=== PATIENT | male | born 1955 | race Two or more races ===

== ENCOUNTER 2016-05-20 23:46 | Emergency (ER) | payer SELFPAY ==
[~2016-05-20] VITALS: Ht 182.9 cm; Wt 72.6 kg
[2016-05-21] MEDS ORDERED: TDAP [DIPH/PERTUSSIS/TET] 0.5 ML VIAL IM ONE ×2 (00:30→00:45)
[2016-05-21 03:02] VITALS: BP 143/73
== END 2016-05-21 03:02 | disposition home or self-care (01) ==
LOC: ER 23:49
DX: S01.412A Laceration without foreign body of left cheek and temporomandibular area, initial encounter (principal); S09.90XA Unspecified injury of head, initial encounter; W01.0XXA Fall on same level from slipping, tripping and stumbling without subsequent striking against object, initial encounter; Y93.89 Activity, other specified; Y92.89 Other specified places as the place of occurrence of the external cause; Y99.8 Other external cause status
CPT/HCPCS: 12011; 70450; 72125; 90471; 90715; 99284; A4606; A6402 ×2; L0172; Z7610

== ENCOUNTER 2016-10-16 17:06 | Emergency (ER) | payer OTHER ==
[~2016-10-16] VITALS: Ht 175.3 cm; Wt 62.1 kg
[2016-10-16] MEDS ORDERED: CITA40TA11 PO (17:16)
[2016-10-16] MEDS ORDERED: BENZ2TAB7 PO (17:16)
[2016-10-16] MEDS ORDERED: DIVA500T54 PO (17:16)
[2016-10-16] MEDS ORDERED: OLAN10TA3 PO (17:16)
[2016-10-16 17:25] LABS: BASOPHILS # (AUTO) 0.1 /CMM (0.0-0.2); BASOPHILS % (AUTO) 1.2 % (0.0-2.0); EOSINOPHILS % (AUTO) 0.7 % (0.0-6.0); HEMATOCRIT 45 % (39-51); HEMOGLOBIN 14.6 g/dL (13.5-17.5); LYMPHOCYTES # (AUTO) 1.5 /CMM (0.8-4.8); MEAN CORPUSCULAR HEMOGLOBIN 28 PG (26.0-33.0); MEAN CORPUSCULAR HGB CONC 33 g/dl (31.0-36.0); MEAN CORPUSCULAR VOLUME 85 fL (80-96); MONOCYTES # (AUTO) 0.4 /CMM (0.1-1.30); MONOCYTES % (AUTO) 5.7 % (2.0-12.0); NEUTROPHILS # (AUTO) 4.8 /CMM (1.8-8.9); NEUTROPHILS % (AUTO) 70.4 % (43.0-81.0); PLATELET COUNT (AUTO) 202 /CMM (150-450); RDW COEFFICIENT OF VARIATION 13.5 (11.5-15.0); RED BLOOD CELL COUNT(AUTO) 5.21 MIL/uL (4.5-6.0); WHITE BLOOD COUNT (AUTO) 6.8 K/uL (4.3-11.0)
[2016-10-16 17:33] LABS: CALCIUM, SERUM 9.2 mg/dL (8.5-10.1); CARBON DIOXIDE 20 mmol/L (21-32); CHLORIDE 100 mmol/L (98-107); CREATININE 1.2 mg/dL (0.6-1.3); GLUCOSE 72 mg/dL (74-106); POTASSIUM 3.9 mmol/L (3.5-5.1); SODIUM SERUM 140 mmol/L (136-145); UREA NITROGEN, BLOOD 19 mg/dL (7-18)
[2016-10-16 17:34] LABS: ALCOHOL, BLOOD < 3 mg/dL (0-0)
[2016-10-16 17:41] LABS: TROPONIN I < 0.017 ng/mL (0.00-0.056)
--- NOTE | 2016-10-16 18:27 | NUR ---
CALLED [facility] FOR PSYCH EVAL, LEFT MESSAGE ON VOICEMAIL
--- NOTE | 2016-10-16 18:31 | NUR ---
RECEIVED CALL BACK FROM NATHANIEL HENNESSY 1 HOUR
--- NOTE | 2016-10-16 18:59 | NUR ---
RECEIVED REPORT FROM ELTON MAIN FOR CONTINUE OF CARE. PT APPERS COMFORTABLE
--- NOTE | 2016-10-16 19:49 | NUR ---
URINE COLLECTED. SENT TO LAB.
[2016-10-16 19:54] LABS: APPEARANCE,URINE Clear (CLEAR); BILIRUBIN,URINE SMALL (NEGATIVE); BLOOD, URINE Trace-lysed Ery/uL (NEGATIVE); COLOR,URINE Yellow (YELLOW); KETONES,URINE >=160 (NEGATIVE); LEUKOCYTE ESTERASE ,URINE Negative (NEGATIVE); NITRITE, URINE Negative (NEGATIVE); PH,URINE 5.5 (5.0-8.0); PROTEIN,URINE 30 mg/dl (NEGATIVE); UGLUCOSE Negative (NEGATIVE)
--- NOTE | 2016-10-16 19:56 | NUR ---
[facility] AT BEDSIDE FOR EVAL.
[2016-10-16 20:17] LABS: BACTERIA,URINE Few /HPF (None Seen); RBC,URINE 0-2 /HPF (0-2); SQUAMOUS EPITHELIAL CELL,UR Rare /HPF (None Seen); WBC,URINE 0-2 /HPF (0-3)
[2016-10-16] MEDS ORDERED: IV D5/0.45 NACL 500 ML IV ONE ×2 (20:28→20:30)
[2016-10-16] MEDS ORDERED: IV SET PRIMARY 1 EA INFUS.SET MC ONE (20:28)
[2016-10-16] MEDS ORDERED: IV NS 0.9% 500 ML IV ONE (20:28)
[2016-10-16] MEDS ORDERED: IV NS 0.9% 500 ML BAG IV ONE (20:30)
--- NOTE | 2016-10-16 21:30 | NUR ---
PT PLACED ON 5150 HOLD PER GERHARD.
--- NOTE | 2016-10-16 21:44 | NUR ---
CALLED [facility] FOR TRANSPORT TO [facility], ETA 1 HOUR
[2016-10-16 22:44] VITALS: BP 126/80
--- NOTE | 2016-10-16 22:56 | NUR ---
REPORT GIVEN TO ELTON MORATAYA FROM [facility].
--- NOTE | 2016-10-16 23:38 | NUR ---
IV removed. Catheter intact and site benign. Pressure and 4x4 applied to site. No bleeding noted.
== END 2016-10-16 23:39 ==
LOC: ER 17:07
DX: F23 Brief psychotic disorder (principal); F20.2 Catatonic schizophrenia; F21 Schizotypal disorder
CPT/HCPCS: 36415; 80048; 80305; 81001; 84484; 85025; 87081; 93005; 99285; A4606; G0480; J3490; J7040; Z7610; 81000-TC

== ENCOUNTER 2016-11-08 17:59 | Emergency (ER) | payer OTHER ==
[~2016-11-08] VITALS: Ht 182.9 cm; Wt 77.1 kg
[~2016-11-08 17:59] MED LIST: BENZ2TAB7 PO; CITA40TA11 PO; DIVA500T54 PO; OLAN10TA3 PO
[2016-11-08] MEDS ORDERED: IV NS 0.9% 1,000 ML ONE (18:08)
--- NOTE | 2016-11-08 18:15 | NUR ---
Pt bbra 79 found on lawn sleeping. PT AAOX2. NOTED LETHARGIC. PER PT HE WAS WALKING THEN FELT TIRED AND LAID ON THE GRASS. VSS. SEEN BY FOR EVAL. SAFETY AND COMFORT MEASURES PROVIDED. WILL MONITOR.
[2016-11-08 18:16] LABS: BASOPHILS # (AUTO) 0.1 /CMM (0.0-0.2); BASOPHILS % (AUTO) 0.5 % (0.0-2.0); EOSINOPHILS # (AUTO) 0.1 /CMM (0.0-0.7); EOSINOPHILS % (AUTO) 0.5 % (0.0-6.0); HEMATOCRIT 38 % (39-51); HEMOGLOBIN 12.6 g/dL (13.5-17.5); LYMPHOCYTES % (AUTO) 9.7 % (20.0-44.0); MEAN CORPUSCULAR HEMOGLOBIN 29 PG (26.0-33.0); MEAN CORPUSCULAR HGB CONC 33 g/dl (31.0-36.0); MEAN CORPUSCULAR VOLUME 86 fL (80-96); MONOCYTES # (AUTO) 0.8 /CMM (0.1-1.30); MONOCYTES % (AUTO) 7.8 % (2.0-12.0); NEUTROPHILS # (AUTO) 8.4 /CMM (1.8-8.9); NEUTROPHILS % (AUTO) 81.5 % (43.0-81.0); PLATELET COUNT (AUTO) 179 /CMM (150-450); RDW COEFFICIENT OF VARIATION 13.1 (11.5-15.0); RED BLOOD CELL COUNT(AUTO) 4.41 MIL/uL (4.5-6.0); WHITE BLOOD COUNT (AUTO) 10.4 K/uL (4.3-11.0)
[2016-11-08 18:24] LABS: CALCIUM, SERUM 9.4 mg/dL (8.5-10.1); CARBON DIOXIDE 28 mmol/L (21-32); CHLORIDE 108 mmol/L (98-107); CREATININE 1.3 mg/dL (0.6-1.3); GLUCOSE 112 mg/dL (74-106); POTASSIUM 3.8 mmol/L (3.5-5.1); SODIUM SERUM 145 mmol/L (136-145); UREA NITROGEN, BLOOD 31 mg/dL (7-18)
[2016-11-08 18:25] LABS: ALCOHOL, BLOOD < 3 mg/dL (0-0)
[2016-11-08] MEDS ORDERED: IV NS 0.9% 1,000 ML BAG IV ONE (18:30)
--- NOTE | 2016-11-08 18:39 | NUR ---
PAGED GABRIELA RN FOR EVAL, ETA 45 MIN
--- NOTE | 2016-11-08 18:40 | NUR ---
UNABLE TO GIVE URINE SAMPLE AT THIS TIME.
[2016-11-08] MEDS ORDERED: ONDANSETRON HCL/PF 4 MG/2 ML VIAL IV ONE (20:30)
[2016-11-08] MEDS ORDERED: ONDANSETRON HCL/PF 4 MG/2 ML VIAL ONE (20:37)
[2016-11-08] MEDS ORDERED: LIDOCAINE 2% JEL UROJET 10 ML MM ONE ×2 (20:40→21:00)
--- NOTE | 2016-11-08 20:45 | NUR ---
IN AND OUT CATH DONE. APPROX 100 ML MARIAELENA URINE OUTPUT NOTED. SAMPLE SENT TO LAB.
--- NOTE | 2016-11-08 21:22 | NUR ---
FIO2 DECREASED TO 50% BY RT.
--- NOTE | 2016-11-08 21:22 | NUR ---
Abram iniguez in [facility] - 11/08/16 at 2123 by TEDDYCCJOELLENACK FIO2 DECREASED TO 50% BY RT.
--- NOTE | 2016-11-08 22:40 | NUR ---
PT APPEARS TO BE RESTING COMFORTABLY WITH NO S/S OF PAIN OR DISTRESS.
--- NOTE | 2016-11-08 23:58 | NUR ---
PT APPEARS TO BE RESTING COMFORTABLY WITH NO S/S OF PAIN OR DISTRESS.
--- NOTE | 2016-11-09 00:31 | NUR ---
PT APPEARS TO BE SLEEPING SOUNDLY WITH NO S/S OF PAIN OR DISTRESS. PT REC'D WARM BLANKETS. PT IS ON THE MONITOR AND CONTINUOUS PULSE OX.
--- NOTE | 2016-11-09 05:59 | NUR ---
PT TO GO BY TAXI ONCE SOMEONE AT THE FACILITY CAN BE REACHED AND RECEIVE THE PT.
--- NOTE | 2016-11-09 05:59 | NUR ---
CALLED [facility] TO SEE IF THEY CAN LET THE PT IN/ RECEIVE THE PT. THE FACILITY IS NOT OPEN UNTIL 0900.
--- NOTE | 2016-11-09 06:00 | NUR ---
CALLED [facility] FOR REGULAR FOOD TRAY; DENIES FOOD ALLERGIES.
--- NOTE | 2016-11-09 06:56 | NUR ---
PT APPEARS TO BE RESTING COMFORTABLY WITH NO S/S OF PAIN OR DISTRESS.
--- NOTE | 2016-11-09 07:03 | NUR ---
REPORT GIVEN TO ELTON CALLE FOR [facility].
--- NOTE | 2016-11-09 07:04 | NUR ---
RECEIVED PATIENT, REMAINS STABLE. WILL CONTINUE TO MONITOR.
--- NOTE | 2016-11-09 07:51 | NUR ---
[facility] in [place], address is [address] [place] [address] [address], , ANASTASIYA
--- NOTE | 2016-11-09 09:24 | NUR ---
CALLED [phone] NOBODY ANSWERS PHONE, UNABLE TO EAVE MESSAGE CALLED [phone] ANASTASIYA, LEFT MESSAGE, AWAITING FOR CALL BACK
--- NOTE | 2016-11-09 09:31 | NUR ---
SPOKE WITH ANASTASIYA FROM [facility], I NOTIFIED HER THAT PATIENT WILL BE DISCHARGED BACK TO HIS FACILITY
--- NOTE | 2016-11-09 10:15 | NUR ---
Patient discharged to in stable condition. Written and verbal after care instructions given. Patient verbalizes understanding of instruction. HECTOR BOWEN PROVIDER. CAB CALLED.
--- NOTE | 2016-11-09 10:16 | NUR ---
IV removed. Catheter intact and site benign. Pressure and 4x4 applied to site. No bleeding noted.
[2016-11-09 10:20] VITALS: BP 105/63
== END 2016-11-09 10:21 | disposition home or self-care (01) ==
LOC: ER 18:00
DX: F20.9 Schizophrenia, unspecified (principal); R41.82 Altered mental status, unspecified
CPT/HCPCS: 36415; 51701; 70450; 80048; 80305; 85025; 96361; 96374; 99285; A4606; G0480; J2405; J3490; J7030; Z7610

== ENCOUNTER 2017-03-30 13:39 | Emergency (ER) | payer OTHER ==
[~2017-03-30] VITALS: Ht 182.9 cm; Wt 61.2 kg
--- NOTE | 2017-03-30 14:00 | NUR ---
MICH RA FOR MED REFILL OF HIS PSYCH MEDS(DOESN'T KNOW WHAT HIS HOME MEDS). NAD NOTED. PT AAOX3. VSS. SAFETY AND COMFORT MEASURES PROVIDED. WILL MONITOR.
--- NOTE | 2017-03-30 18:00 | NUR ---
COMPUTER SYSTEMS SECURITY ANALYST AT FOR EVAL.
[2017-03-30] MEDS ORDERED: OLANZAPINE 5 MG TABLET PO ONE (18:30)
--- NOTE | 2017-03-30 18:30 | NUR ---
PT MEDICATED ORDERED.
[2017-03-30 18:32] LABS: BASOPHILS # (AUTO) 0.1 /CMM (0.0-0.2); BASOPHILS % (AUTO) 0.9 % (0.0-2.0); EOSINOPHILS % (AUTO) 0.1 % (0.0-6.0); HEMATOCRIT 43 % (39-51); HEMOGLOBIN 13.9 g/dL (13.5-17.5); LYMPHOCYTES # (AUTO) 2.3 /CMM (0.8-4.8); LYMPHOCYTES % (AUTO) 23.3 % (20.0-44.0); MEAN CORPUSCULAR HEMOGLOBIN 29 PG (26.0-33.0); MEAN CORPUSCULAR HGB CONC 33 g/dl (31.0-36.0); MEAN CORPUSCULAR VOLUME 89 fL (80-96); MONOCYTES # (AUTO) 0.8 /CMM (0.1-1.30); MONOCYTES % (AUTO) 8.1 % (2.0-12.0); NEUTROPHILS # (AUTO) 6.6 /CMM (1.8-8.9); NEUTROPHILS % (AUTO) 67.6 % (43.0-81.0); PLATELET COUNT (AUTO) 264 /CMM (150-450); RDW COEFFICIENT OF VARIATION 14.6 (11.5-15.0); RED BLOOD CELL COUNT(AUTO) 4.83 MIL/uL (4.5-6.0); WHITE BLOOD COUNT (AUTO) 9.7 K/uL (4.3-11.0)
[2017-03-30] MEDS ORDERED: OLANZAPINE 5 MG TABLET ONE (18:33)
[2017-03-30 19:32] LABS: ALANINE AMINOTRANSFERASE 26 U/L (12-78); ALBUMIN 4.1 g/dL (3.4-5.0); ALKALINE PHOSPHATASE 82 U/L (46-116); ASPARTATE AMINOTRANSFERASE 41 U/L (15-37); BILIRUBIN,DIRECT 0.1 mg/dL (0.0-0.2); BILIRUBIN,TOTAL 0.7 mg/dL (0.2-1.0); CALCIUM, SERUM 9.5 mg/dL (8.5-10.1); CARBON DIOXIDE 17 mmol/L (21-32); CHLORIDE 97 mmol/L (98-107); GLUCOSE 74 mg/dL (74-106); POTASSIUM 3.7 mmol/L (3.5-5.1); SODIUM SERUM 136 mmol/L (136-145); TOTAL PROTEIN, SERUM 7.4 g/dL (6.4-8.2); UREA NITROGEN, BLOOD 26 mg/dL (7-18)
[2017-03-30 19:34] LABS: ACETAMINOPHEN < 2 ug/ml (10-30); SALICYLATE 2.2 mg/dL (2.8-20.0)
[2017-03-30 19:44] LABS: ALCOHOL, BLOOD < 3 mg/dL (0-0)
[2017-03-30 20:09] LABS: APPEARANCE,URINE SL CLOUDY (CLEAR); BILIRUBIN,URINE 2+ (NEGATIVE); BLOOD, URINE NEGATIVE Ery/uL (NEGATIVE); COLOR,URINE YELLOW (YELLOW); KETONES,URINE 3+ (NEGATIVE); LEUKOCYTE ESTERASE ,URINE NEGATIVE (NEGATIVE); NITRITE, URINE NEGATIVE (NEGATIVE); PH,URINE 5.5 (5.0-8.0); PROTEIN,URINE TRACE mg/dl (NEGATIVE); UGLUCOSE NEGATIVE (NEGATIVE); UROBILINOGEN,URINE 0.2 EU/dL (0.2)
--- NOTE | 2017-03-30 20:10 | NUR ---
Patient is resting comfortably in bed with eyes closed. Easily aroused. VSS
[2017-03-30 20:22] LABS: BACTERIA,URINE Few /HPF (None Seen); COARSE GRANULAR CASTS,URINE Rare /LPF (None Seen); HYALINE CASTS, URINE Rare /LPF (None Seen); SQUAMOUS EPITHELIAL CELL,UR Moderate /HPF (None Seen)
--- NOTE | 2017-03-30 22:57 | NUR ---
Patient is resting comfortably in bed with eyes closed. Easily aroused. VSS
--- NOTE | 2017-03-30 23:51 | NUR ---
RECEIVED REPORT FROM JOSEFINA AMIN RN FOR COTINUITY OF CARE.
--- NOTE | 2017-03-31 08:26 | NUR ---
PATIENT ON BED. ASLEEP. VSS
--- NOTE | 2017-03-31 09:41 | NUR ---
[facility] AT [facility]- [phone]- GEORGE FROST
--- NOTE | 2017-03-31 09:42 | NUR ---
[id number] -[facility]
--- NOTE | 2017-03-31 09:49 | NUR ---
DISCHARGE INFO FAXED TO [facility]
[2017-03-31] MEDS ORDERED: OLANZAPINE 5 MG TABLET ONE (09:58)
--- NOTE | 2017-03-31 09:58 | NUR ---
PRINCE received a call from ELTON Miles in ED requesting for PRINCE to assist in discharge since pt. is confused and states he is homeless, however per crisis link machine operator ELTON Blackwell, pt. lives at [address], [place]. [place]. PRINCE contacted pt's therapist Kyle at [facility] to inquire if pt. does live at the aforementioned address. Per Kyle, pt. does reside at the address mentioned above. Pt. resides at an independent living called [facility] apartments. Kyle gave SW pt's manager of case management Barbra's contact . PRINCE called Barbra and left her two voice messages. PRINCE then contacted pt's cinema or theatre manager Kris Hernandez and informed him that pt. is here at the hospital and confirmed that pt. does reside at the apartments. PRINCE informed Kris that pt. does not have his house keys and will need assistance in getting into his apartment. Kris informed SW he will open the apartment for the pt. PRINCE informed Kris pt. will be discharged via ambulance to his apartment complex. PRINCE updated ELTON Miles regarding pt's discharge plan and ELTON Miles will arrange for ambulance transportation to [id number], [place]. [place].. PRINCE contacted Kyle at [facility] and updated her on pt's discharge plan.
[2017-03-31] MEDS ORDERED: OLANZAPINE 5 MG TABLET PO ONE (10:00)
--- NOTE | 2017-03-31 10:10 | NUR ---
ETA 45 MINS AMBULANZ
[2017-03-31 11:09] VITALS: BP 107/76
--- NOTE | 2017-03-31 11:10 | NUR ---
PATIENT TRANSPORTED TO HOME. VSS
== END 2017-03-31 11:10 | disposition home or self-care (01) ==
LOC: ER 13:41
DX: F29 Unspecified psychosis not due to a substance or known physiological condition (principal)
CPT/HCPCS: 36415; 80048-TC; 80076-TC; 80305; 81000-TC; 85025-TC; A4606; G0480; Z7610